=== PATIENT | male | born 1995 | race Caucasian/White ===

== ENCOUNTER 2019-02-25 11:04 | Emergency (ER) | payer SELFPAY ==
[2019-02-25 11:19] VITALS: BMI 23.0
[2019-02-25] MEDS ORDERED: LORazepam 2 MG/ML SDV VIAL ONE (11:41)
--- NOTE | 2019-02-25 12:19 | PDOC ---
Attending Attestation - Resident Resident Name: PauloDeann - ED Attending Attestation I have performed the following: I have examined & evaluated the patient, The case was reviewed & discussed with the resident, I agree w/resident's findings & plan - HPI HPI: 02/25/19 12:17 Healthy 23-year-old male with history of substance abuse presents complaining of "dystonia" of his left jaw after accidentally taking his friend's Haldol pill. Denies any trauma, denies any history of similar issues, denies any difficulty breathing. - Physicial Exam PE: 02/25/19 12:17 Vital signs normal Patient alert in stretcher, answering questions and following commands, voluntarily sticking out his tongue but able to control secretions, apparent asymmetry of the jaw without any external signs of trauma. Patient is holding his mouth open, jaw is slightly deviated to the right but there is no step-off and dentition is intact. The remaining muscle tone is normal, mental status is clear, patient is neurologically intact. - Medical Decision Making 02/25/19 12:18 23-year-old male presents with jaw reportedly locked in open position, reports it as dystonia but it appears to be more of a unilateral dislocation versus malingering. No signs of trauma, no evidence of systemic toxicity. Mandible x-ray given unclear history and exam Trial of benzo Reassess Heart Score/ECG Review #1 ECG reviewed & interpreted by me at: 11:40 General ECG Interpretation: Sinus Rhythm, Normal Rate (80), Normal Intervals ( qtc 417), No acute ischemic changes
--- NOTE | 2019-02-25 12:40 | PDOC ---
History of Present Illness - General Chief Complaint: Pain Stated Complaint: JAW LOCK Time Seen by Provider: 02/25/19 11:25 - History of Present Illness Initial Comments: 02/25/19 11:54 HPI: 23 y/o M with no pmh presenting for complaints of "dystonic reaction." He states he accidentally took one of his friend's prescription Haldol 20mg pills 2 nights ago and woke up this morning with his jaw locked. He reports pain along his left mandible and into the TMJ. He denies previous history or any other drug use. Reports otherwise normal health. He reports having same episode yesterday and presented to [facility] but said it self resolved and he AMAd. PMHx: as noted above ROS: as noted SHx: loose cigarette use; no alcohol use; no rec drugs Allergies: NKDA ROS: GENERAL/CONSTITUTIONAL: No fever or chills. No weakness. HEAD, EYES, EARS, NOSE AND THROAT: No change in vision. No ear pain or discharge. No sore throat. CARDIOVASCULAR: No chest pain or shortness of breath RESPIRATORY: No cough, wheezing, or hemoptysis. GASTROINTESTINAL: No nausea, vomiting, diarrhea or constipation. GENITOURINARY: No dysuria, frequency, or change in urination. MUSCULOSKELETAL: No joint or muscle swelling or pain. No neck or back pain. SKIN: No rash NEUROLOGIC: No headache, vertigo, loss of consciousness, or change in strength/ sensation. ENDOCRINE: No increased thirst. No abnormal weight change HEMATOLOGIC/LYMPHATIC: No anemia, easy bleeding, or history of blood clots. ALLERGIC/IMMUNOLOGIC: No hives or skin allergy. PE: GENERAL: Awake, alert, and fully oriented, moderate acute distress HEAD: No signs of trauma, normocephalic, atraumatic, jaw asymmetric with right sided deviation, ttp at angle of left mandible and TMJ EYES: EOMI, sclera anicteric, conjunctiva clear ENT: Auricles normal inspection, hearing grossly normal, nares patent, oropharynx clear without exudates. Moist mucosa NECK: Normal ROM, no lymphadenopathy LUNGS: No increased work of breathing, symmetrical chest rise, clear to auscultation bilaterally, no wheezes, crackles or rhonchi HEART: Regular rate and rhythm, normal S1 and S2, no murmurs, peripheral pulses 2+ and equal bilaterally. ABDOMEN: Soft, nondistended, nontender, normoactive bowel sounds. No guarding, no rebound. No masses. No CVAT MUSCULOSKELETAL: Normal inspection, FROM NEUROLOGICAL: Cranial nerves II through XII grossly intact. Normal speech, normal gait, no focal sensorimotor deficits SKIN: Warm, Dry, normal turgor, no rashes or lesions noted Past History - Past Medical History Allergies/Adverse Reactions: Allergies Allergy/AdvReac Type Severity Reaction Status Date / Time No Known Allergies Allergy Verified 02/25/19 11:14 Home Medications: Ambulatory Orders NK [No Known Home Medication] 02/25/19 CVA: No COPD: No CHF: No DVT: No - Immunization History Immunization Up to Date: Yes - Psycho Social/Smoking Cessation Hx Smoking History: Never smoked Information on smoking cessation initiated: No Hx Alcohol Use: No Drug/Substance Use Hx: No *Physical Exam - Vital Signs Last Vital Signs Temp Pulse Resp BP Pulse Ox 98.5 F 93 H 18 134/85 97 02/25/19 11:15 02/25/19 11:15 02/25/19 11:15 02/25/19 11:15 02/25/19 11:15 ED Treatment Course - ADDITIONAL ORDERS Additional order review: Laboratory Results 02/25/19 11:39 POC Glucometer 115 02/25/19 11:39 POC Glucometer 115 - RADIOLOGY Radiology Studies Ordered: Category Date Time Status MANDIBLE ONE SIDE [RAD] Stat Radiology 02/25/19 11:45 Ordered - Medications Given in the ED: ED Medications Discontinued Medications Generic Name Dose Route Start Last Admin Trade Name Freq PRN Reason Stop Dose Admin Lorazepam 2 mg 02/25/19 11:39 02/25/19 11:42 Ativan Injection - IVPUSH 02/25/19 11:40 2 mg ONCE ONE Administration Medical Decision Making - Medical Decision Making 02/25/19 13:26 23 y/o M with no pmh presenting for complaints of "dystonic reaction" following accidental haldol use. VSS, AF. Pe with right deviated jaw and ttp along left mandible. DDx includes dystonic reaction vs unilateral jaw dislocation -will administer 2mg ativan -mndible XR r/o fx -reassess 02/25/19 14:30 lockjaw resolved following ativan XR without fracture patient feels better will DC home Discharge - Discharge Information Problems reviewed: Yes Clinical Impression/Diagnosis: Strain of jaw Condition: Improved Disposition: HOME - Follow up/Referral - Patient Discharge Instructions Patient Printed Discharge Instructions: DI for Muscle Strain Additional Instructions: Additional Instructions: Please return to the emergency department with any new or worsening symptoms or concerns. Please follow up with your primary care physician within 72 hours. Please avoid taking prescription medications that are not specifically written for you You may take tylenol 650mg every 6-8 hours as needed for pain control - Post Discharge Activity
[2019-02-25 12:41] VITALS: TEMP 98
[2019-02-25 14:29] VITALS: BP 121/71; PULSE 71
--- NOTE | 2019-02-26 09:47 | EKG ---
Test Reason : Blood Pressure : / mmHG Vent. Rate : 080 BPM Atrial Rate : 080 BPM P-R Int : 124 ms QRS Dur : 092 ms QT Int : 362 ms P-R-T Axes : 081 090 069 degrees QTc Int : 417 ms POOR DATA QUALITY, INTERPRETATION MAY BE ADVERSELY AFFECTED NORMAL SINUS RHYTHM WITH SINUS ARRHYTHMIA RIGHTWARD AXIS BORDERLINE ECG NO PREVIOUS ECGS AVAILABLE Confirmed by MD Stefano, Geoff ([id number]) on 02/26/2019 9:47:20 AM Referred By: Confirmed By:Geoff Agarwal MD
== END 2019-02-25 14:40 | disposition home or self-care (01) ==
LOC: JER 11:04
PROC: 3E033NZ Introduction of Analgesics, Hypnotics, Sedatives into Peripheral Vein, Percutaneous Approach (ICD-10-PCS; principal; 2019-02-25)
DX: S03.43XA Sprain of jaw, bilateral, initial encounter (principal); X58.XXXA Exposure to other specified factors, initial encounter; Y93.89 Activity, other specified; Y92.89 Other specified places as the place of occurrence of the external cause
CPT/HCPCS: 70100-TC-FY; 82962; 93005; 93010; 99281-25